=== PATIENT | female | born 1965 | race Caucasian/White ===

== ENCOUNTER 2024-09-06 18:44 | Emergency (ER) | payer MEDICARE, OTHER, SELFPAY ==
[2024-09-06 18:48] VITALS: BP 163/79; PULSE 70; TEMP 37; O2SAT 95; BMI 25.7
--- NOTE | 2024-09-06 19:04 | ED.GENADULT ---
HPI - General Adult General Chief complaint: Headache/Migraine Stated complaint: migraine Time Seen by Provider: 09/06/24 18:48 History of Present Illness HPI narrative: Patient is a 59-year-old woman with chronic headaches. Her bxpq-npz-[id number] remedies have not been working she has had refractory headache for the last 24 hours. Patient has been seen in the emergency room new her home of [facility] and is received IV saline Zofran Toradol and Benadryl. This has worked well. There has been no unusual features of this headache. She has her usual photophobia. No stiff neck no palpitations no other neurologic symptoms. Patient previously was in her usual state of health. Related Data Allergies Allergy/AdvReac Type Severity Reaction Status Date / Time acetaminophen (From Vicodin) Allergy Mild Verified 09/06/24 18:55 cyclobenzaprine (From Allergy Mild Verified 09/06/24 18:55 Flexeril) hydrocodone (From Vicodin) Allergy Mild Verified 09/06/24 18:55 Review of Systems Status of ROS: Reports: 10 or more systems reviewed and unremarkable except as noted in History and below Exam Narrative: Exam Narrative: EXAM GENERAL: Patient appears comfortable and well. EYES: No scleral icterus. ENT: Tympanic membranes and oropharynx normal. THYROID: no thyroid nodules or thyromegaly. LYMPH: No supraclavicular or cervical lymphadenopathy. SKIN: Visible skin seen during exam normal or with benign process only. EXT: No dependent lower extremity pedal edema. HEART: Regular rate and rhythm with no murmurs, rubs, or gallops. LUNGS: Clear to auscultation bilaterally with no crackles or wheezes. ABD: Soft, non tender, non distended. PSYCH: Good eye contact, speech is not pressured. Const: Vital Signs, click to edit/add: Vital Signs - 24 hr 09/06/24 18:48 Temperature 98.6 F Pulse Rate [Pulse Oximeter] 70 Blood Pressure [Ri ght Upper Arm] 163/79 H Pulse Oximetry 95 Oxygen Delivery Me thod Room Air Course Course ED Course: Patient seen and examined. Above mentioned cocktail of Benadryl normal saline Toradol and Zofran given. Patient will be observed likely discharged home to follow up with her primary physician to continue her outpatient medications. Vital Signs Vital signs: Initial Vital Signs Temperature 98.6 F 09/06/24 18:48 Temperature Source Temporal Artery Scan 09/06/24 18:48 Pulse Rate 70 09/06/24 18:48 Blood Pressure 163/79 H 09/06/24 18:48 Blood Pressure Mean 107 H 09/06/24 18:48 Blood Pressure Position Sitting 09/06/24 18:48 Pulse Oximetry 95 09/06/24 18:48 Oxygen Delivery Method Room Air 09/06/24 18:48 Vital Signs Temperature 98.6 F 09/06/24 18:48 Pulse Rate 70 09/06/24 18:48 Blood Pressure 163/79 H 09/06/24 18:48 Pulse Oximetry 95 09/06/24 18:48 Oxygen Delivery Method Room Air 09/06/24 18:48 Temperature 98.6 F 09/06/24 18:48 Pulse Rate 70 09/06/24 18:48 Blood Pressure 163/79 H 09/06/24 18:48 Pulse Oximetry 95 09/06/24 18:48 Oxygen Delivery Method Room Air 09/06/24 18:48 Medical Decision Making MDM Narrative Medical decision making narrative: As above. Discharge Plan Discharge Clinical Impression: Headache Patient Disposition: Home, Self-Care Condition: Stable Instructions: Acute Headache (ED) Additional Instructions: Continue current medications Follow-up with your doctor as needed. Activity Level: No Restrictions Discharge Diet: Regular Stand Alone Forms: MyHealth Info Instructions
[2024-09-06] MEDS: ONDANSETRON 2 MG/ML inj 4 MG IVP (19:20)
[2024-09-06] MEDS: diphenhydrAMINE 50 MG/ML inj IVP (19:22)
--- OUTSIDE RECORDS SUMMARY | 2024-09-06 19:22 | XMS_ITS | Encounter Summary ---
Author Organization [facility] Address [address] [place] [address] [address] [place] [address] Care Team Providers Care Video Game Script Writer Name Role Phone Jacinda Hyman MD Primary Care Provider [phone] Jacinda Hyman MD Unavailable [phone] Reason for Visit * Reason Comments Refill Request Encounter Details Date Type Department Care Team (Late st Contact Info) Description 07/26/2024 Refill [facility] [address] [place] [address] Jacinda Hyman MD [address] [place] [address] Refill Request Social History Tobacco Use Types Packs/Day Years Used Date Smoking Tobacco: Never Smokeless Tobacco: Never Alcohol Use Standard Drinks/Week Comments Yes 0 (1 standard drink = 0.6 oz pur e alcohol) socially less than weekly PHQ-2 Answer Date Recorded PHQ-9 Total (Adult) 12 11/27/2022 Exercise Vital Sign Answer Date Recorde d Days of Exercise per Week 4 days 2018 Minutes of Exercise per Session 30 min 06/24/2019 Sexually Active Control Partners Comments Yes Surgical Comments No Sex and Gender Information Value Date Recorded Sex Assigned at Female 11/19/2018 8:15 PM CDT Legal Sex Female 4:38 AM CDT Gender Identity Female 11/19/2018 8:15 PM CDT Sexual Orientation Choose not to disclose 2018 8:15 PM CDT documented as of this encounter Functional Status * Is the person deaf or does he/she have serious difficulty hearing? Answer Date of Assessment Author No 09/08/2015 3:19 PM TAPE KELLER OPERATOR Blas Hummel RN * Is this person blind or does he/she have difficulty seeing even when wearing glasses? Answer Date of Assessment Author No 01/21/2018 8:32 AM CDT Floresita Swartz RN * Do you have difficulty with walking, balance, climbing stairs, or had a fall in the last 3 months? Answer Date of Assessment Author No 08/24/2016 2:56 PM TAPE KELLER OPERATOR Cody Cueva RN * Does the patient have difficulty dressing or bathing? Answer Date of Assessment Author No 04/21/2015 3:23 PM CDT Sylvia Kruger RN * Because of a physical, mental, or emotional condition; does this person have difficulty doing errands alone such as visiting a doctor's office or shopping? Answer Date of Assessment Author No 04/21/2015 3:23 PM CDT Sylvia Kruger RN documented as of this encounter Mental Status * Because of a physical, mental, or emotional condition; does this person have serious difficulty concentrating, remembering, or making decisions? Answer Entry Date Author No 04/21/2015 3:23 PM Sylvia Brown RN documented in this encounter Nursing Notes * Sallie Holliday RN - 07/28/2024 4:14 PM CST Prescription refused. Per telephone encounter on 06/24/24 patient requested to be taken off of recall list as she was being seen at [place]. KELLER OPERATOR documented in this encounter Plan of Treatment Not on file documented as of this encounter Visit Diagnoses Diagnosis Gastro-esophageal reflux disease without esophagitis Esophageal reflux documented in this encounter Care Teams Video Game Script Writer Relationship Specialty Start Date End Date Jacinda Hyman MD [address] [place] [address] PCP - General 08/13/09 Jacinda Hyman MD [address] [place] [address] [address] PCP - Attributed Provider 11/21/21 documented as of this encounter
--- OUTSIDE RECORDS SUMMARY | 2024-09-06 19:23 | XMS_ITS | Clinical Summary ---
Author Organization [facility] Address [address] [place] [address] Care Team Providers Care Claims Customer Service Representative Name Role Phone Jacinda Hyman MD Primary Care Provider [phone] Jacinda Hyman MD Unavailable [phone] Allergies Active Allergy Reactions Criticality Noted Date Comments Dust Mite Extract Other (Specify in Comments) 08/13/2009 Nasal congestion, watery eyes Gabapentin Enacarbil Confusion 10/26/2014 Morphine Nausea and Vomiting 09/25/2014 Pet Dander Other (Specify in Comments) 08/13/2009 Nasal congestion, watery eyes Fluoxetine Other (Specify in Comments) 07/05/2015 Nightmares Hydrocodone-Acetaminop hen Other (Specify in Comments) 08/13/2009 hallucinations Medications Polyethylene Glycol 3350 (MIRALAX PO) Take 1 capful by mouth 2 times per day as needed. - for constipation. Active vitamin C, ascorbic acid, 500 MG tablet Take 500 mg by mouth 2 times per day. 0 Active Calcium Carbonate-Vitami n D (CALCIUM 600 + D PO) Take 2 tablets by mouth 1 time per day. Active melatonin 3 mg tablet Take 1.5 mg by mouth every night at bedtime Active fluticasone (FLONASE) 50 mcg/spray nasal sprayIndications :Nausea SPRAY 2 SPRAYS INTO EACH NOSTRIL 1 TIME PER DAY. 16 g 3 1 Active buPROPion (WELLBUTRIN XL) 300 mg tablet (24 hr)Indications:D epression with anxiety Take 1 tablet (300 mg) by mouth 1 time per day 90 tablet 3 2 Active ondansetron (ZOFRAN) 4 mg tabletIndication s:Nausea Take 1 tablet (4 mg) by mouth every 6 hours as needed for nausea (due to migraine) 20 tablet 1 2 Active topiramate (TOPAMAX) 100 mg tabletIndication s:Nonintractable headache, unspecified chronicity pattern, unspecified headache type Take 1.5 tablets (150 mg) by mouth 1 time per day 45 tablet 3 3 Active citalopram (CELEXA) 40 mg tablet 1 time per day 2 Active sumatriptan (IMITREX) 100 mg tabletIndication s:Migraine without status migrainosus, not intractable, unspecified migraine type Take 1 tablet (100 mg) by mouth if needed for migraine For adults: may repeat x1 dose after 2 hours if needed; MAX 2 doses/24 hours 9 tablet 12 3 Active estradiol (ESTRACE) 1 mg tabletIndication s:Hormone replacement therapy (HRT) Take 1 tablet (1 mg) by mouth 1 time per day 30 tablet 3 Active rizatriptan (MAXALT-TEXTILE ENGRAVER) 10 mg dispersible tabletIndication s:Migraine without status migrainosus, not intractable, unspecified migraine type Take 1 tablet (10 mg) by mouth every 2 hours as needed for migraine Dissolve in mouth at onset of headache. For adults: may repeat x 1 dose after 2 hours if needed; MAX 2 doses in 24 hours. For pediatrics: MAX 1 dose in 24 hours (dose is based on weight in kg). 18 tablet 3 Active esomeprazole (NEXIUM) 40 mg capsuleIndicatio ns:Gastro-esopha geal reflux disease without esophagitis TAKE 1 Capsule BY MOUTH EVERY MORNING 14 capsule 4 Active Active Problems Problem Noted Date Diagnosed Date Moderate episode of recurrent major depressive d isorder 11/15/2022 History of malignant melanoma 11/29/2018 Migraine without status migrainosus, not intract able 10/13/2017 Ovarian cancer 11/30/2016 Depression with anxiety 02/09/2016 Essential hypertension 02/09/2016 Malignant melanoma of upper arm 06/08/2010 Malignant melanoma 02/10/2010 GERD (gastroesophageal reflux disease) 0 Constipation 08/26/2009 Thoracic compression fracture Resolved Problems Problem Noted Date Diagnosed Date Resolved Date Headache 09/18/2016 11/30/2016 Overview (09/18/2016): Migraine by history Dyspareunia in female 04/20/20162016 Atrophic vaginitis 04/20/2016 7 Vaginismus 04/20/2016 08/24/2016 Depression 08/15/2012 02/09/2016 Dyspareunia 01/11/2012 11/30/2016 Slow urinary stream 01/11/2012 12/01/19 17 Pyelonephritis 08/26/2009 11/30/2016 Hypertension 08/13/2009 02/09/2016 Encounters Date Type Department Care Team Description 07/26/2024 Refill [facility] [address] [place] [address] Jacinda Hyman MD Refill Request 07/17/2024 Refill [facility] [address] [place] [address] Jacinda Hyman MD Refill Request 07/10/2024 Refill [facility] [address] [place] [address] [address] Jacinda Hyman MD Refill Request 06/24/2024 Telephone [facility] [address] [place] [place] [address] Blossom Santana, SUPERVISOR [employer] 06/24/2024 Refill [facility] [address] [place] [address] [address] Jacinda Hyman MD Refill Request 06/12/2024 Refill [facility] [address] [place] [address] Jacinda Hyman MD Refill Request from Last 3 Months Immunizations Immunization Administration Dates Next Due FLU VACCINE TRIVALENT MULTIDOSE(Fluvirin,Afluria) 05/01/2012 FLU VACCINE INTRADERMAL 18-64YR 05/15/2014,05/17 FLU VACCINE MULTIDOSE 0.5mL(6MO+Fluzone/Flulaval,Afluria) 05/15/2014 FLU VACCINE SINGLE DOSE 0.5mL(6MO+Fluzone/Flulaval/Fluarix,3Y R+Afluria) 05/14/2020,06/24/2019,05/01/2018,2016,07/25/2016 Influenza Vaccine 05/06/2011 Influenza Vaccine,unspecified 05/16/2012, 006,05/28/2001 TDAP 04/30/2016 Tuberculin Skin Test PPD Intradermal 10/23/2017, 10/08/2017 pneumovax 08/18/2005 Family History Medical History Relation Comments Alcohol/Drug Father alcohol abuse Allergies Father environmental Arthritis Father Asthma Father Chronic Obstructive Pulmonary Disease Father Eye Disorder Father Heart Father heart attack-dwayne nts placed Hypertension Father Migraines Father Stroke Father Heart Maternal Grandfather Genitourinary () Mother Peripheral Vascular Disease Mother Heart Paternal Grandfather Dementia Paternal Grandmother Diabetes Paternal Uncle Depression Sister 1 Relation Status Comments Brother Alive Daughter Alive Father Alive Maternal Grandfather Maternal Grandmother Mother Alive Paternal Grandfather Paternal Grandmother Paternal Uncle Sister 1 Alive Sister 2 Alive Son 1 Alive Son 2 Alive Social History Tobacco Use Types Packs/Day Years [...] not to disclose 2018 8:15 PM CDT Last Filed Vital Signs Vital Sign Reading Time Taken Comments Blood Pressure 108/72 12/18/2022 1:47 PM CDT Pulse 104 12/18/2022 1:47 PM CDT Temperature 36.7 C (98.1 F) 12/18/2022 1:47 PM CDT Respiratory Rate 16 12/18/2022 1:47 PM CDT Oxygen Saturation 97% 12/18/2022 1:47 PM CDT Inhaled Oxygen Concentration - - Weight 65.3 kg (144 lb) 12/18/2022 1:47 PM CDT Height 160 cm (5' 3) 01/21/2018 8:34 AM CDT Body Mass Index 25.51 01/21/2018 8:34 AM CDT Plan of Treatment Health Maintenance Due Date Last Done Comments Microalbumin 1965 Covid-19 Vaccine (#1) 01/04/1969 Zoster Vaccine (1 of 2) 01/04/1983 Pneumococcal Vaccine 50yr + (2 of 2 - PCV) 08/18/2006 08/18/2005 Mammogram 07/10/2023 07/10/2022, 02/0 08/2020, 07/21/2019, Additional history exists Influenza Vaccine (#1) 2024 , 06/24/2019, 05/01/2018, Additional history exists Diabetes Screening 11/27/2025 11/27/2022, 0 10/02/2022, 11/03/2021, Additional history exists TDAP/TD VACCINE (2 - Td or Tdap) 04/30/2026 04/30/2016 Lipid Screening 11/28/2027 11/27/2022, 05/31, 06/18/2018, Additional history exists Colorectal Cancer Screening 01/22/2028 01/21/2018, 0 10/05/2009 RSV Vaccine, Adult (1 - 1-dose 75+ series) 01/04/2039 HIV One Time Screening Ages 15-65 Completed 07/02/2017 Hepatitis C Screening Completed 07/02/2017 Hepatitis B Vaccine Aged Out No longe r eligible based on patient's age to complete this topic Medical Devices Implanted Type Area Bleacher Operator Device Identifier Shelf Expiration Date Model / Serial / Lot Tvt Sling Lynx N 850-300 Ea(Aka Vag Tvt System [id number]) - [id number] Implanted:Qty : 1 on 07/28/2010 at [facility] General Implant SUPR[employer]UB[employer] 12/28/2012 850-300 / / [id number] Procedures Procedure Name Priority Date/Time Associated Diagnosis Comments LIPID PANEL Routine 11/27/2022 8:55 AM CDT Essential hypertension BASIC METABOLIC PANEL Routine 11/27/2022 8:55 AM CDT Essential hypertension MAMMOGRAM DIGITAL DIAGNOSTIC BIANCA Routine 07/10/2022 2:47 PM PAPER CONTROL CLERK Encounter for screening mammogram for malignant neoplasm of breast HIV SCREEN REFLEX TO CONFIRMATION Routine 07/02/2017 9:43 AM PAPER CONTROL CLERK Screening for HIV (human immunodeficiency virus) HEPATITIS C ANTIBODY Routine 07/02/2017 9:43 AM PAPER CONTROL CLERK Encounter for hepatitis C screening test for low risk patient from Last 3 Months or Most Recently Relevant to Health Maintenance Results * (ABNORMAL) LIPID PANEL (11/27/2022 8:55 AM CDT) Cholesterol 208(H) <200 mg/dL 11/27/2022 9:27 AM CDT [facility] Triglyceride 131 <150 mg/dL 11/27/2022 9:27 AM CDT [facility] HDL 62 >=40 mg/dL 11/27/2022 9:27 AM CDT [facility] LDL 120(H) <=100 mg/dL 11/27/2022 9:27 AM CDT [facility] Blood BLOOD SPECIMEN / Unknown 11/27/2022 8:55 AM CDT 11/27/2022 8:59 AM CDT us Jacinda Hyman MD LAB BLOOD Final Result [facility] [address] [place] [address] * BASIC METABOLIC PANEL (11/27/2022 8:55 AM CDT) Glucose 93 70 - 99 mg/dL 11/27/2022 9:27 AM CDT [facility] BUN 17 6 - 22 mg/dL 11/27/2022 9:27 AM CDT [facility] Creatinine 0.99 0.55 - 1.02 mg/dL 11/27/2022 9:27 AM T [facility] BUN/Creatinine Ratio 17.2 10.0 - 25.0 11/27/2022 9:27 AM T [facility] Sodium 138 136 - 145 meq/L 11/27/2022 9:27 AM T [facility] Potassium 5.0 3.5 - 5.1 meq/L 11/27/2022 9:27 AM [facility] Chloride 102 98 - 109 meq/L 11/27/2022 9:27 AM T [facility] CO2 26 20 - 29 meq/L 11/27/2022 9:27 AM T [facility] Anion Gap with K 15 6 - 20 meq/L 11/27/2022 9:27 AM [facility] Calcium 9.7 8.5 - 10.5 mg/dL 11/27/2022 9:27 AM [facility] Age 57 Years 11/27/2022 9:27 AM [facility] eGFRcr() 66 >=60 mL/min/1.7 3m2 11/27/2022 9:27 AM [facility] Blood BLOOD SPECIMEN / Unknown 11/27/2022 8:55 AM CDT 11/27/2022 8:59 AM CDT us Jacinda Hyman MD LAB BLOOD Final Result Performing Organization Address City/State/[facility] de Phone Number [facility] [address] [place] [address] * (ABNORMAL) MAMMOGRAM DIGITAL DIAGNOSTIC BIANCA (07/10/2022 2:47 PM PAPER CONTROL CLERK) Anatomical Region Laterality Modality Breast Bilateral Mammography 07/10/2022 2:48 PM PAPER CONTROL CLERK Narrative 07/10/2022 2:50 PM PAPER CONTROL CLERK Patient Name: BELLA ANDERSON Date of : 1965 Procedure: MAMMOGRAM DIGITAL DIAGNOSTIC BIANCA Date of Service: 07/10/2022 EXAM: MAMMOGRAM DIGITAL DIAGNOSTIC BIANCA INDICATION: ICD-10 Z12.31 Encounter for screening mammogram for malignant neoplasm of breast screening, right breast lump lateral . COMPARISON(S): 08/31/2020 and 07/21/2019 TECHNIQUE: Computer aided detection used. DENSITY: There are scattered areas of fibroglandular density. MAMMOGRAM FINDINGS: I do not see any concerning findings on either side. The lump marker overlies the upper outer quadrant of the right breast. ASSESSMENT: BI-RADS Category 0 incomplete RECOMMENDATION: Diagnostic right breast ultrasound. Please see the ultrasound report for the final follow-up recommendation. A letter will be sent to the patient indicating her mammography results in lay terminology. Finalized by: Chago Juarez MD on 07/10/2022 2:50 PM PAPER CONTROL CLERK Patient/Procedure Information: [facility] MRN/PRICILLA: [id number] Order Number: [id number] Accession Number: [id number] Ordering Provider: JACINDA HYMAN Authorizing Provider: JACINDA HYMAN us Jacinda Hyman MD MAMMOGRAPHY Final Result * HEPATITIS C ANTIBODY (07/02/2017 9:43 AM PAPER CONTROL CLERK) Hepatitis C Antibody Interp Nonreactive Nonreactive 07/02/2017 10:46 PM [facility] Blood BLOOD SPECIMEN / Unknown 07/02/2017 9:43 AM PAPER CONTROL CLERK 07/02/2017 10:21 AM PAPER CONTROL CLERK [facility] - 07/02/2017 10:46 PM PAPER CONTROL CLERK Antibodies to HCV not detected; does not exclude the possibility of exposure to HCV. us Jacinda Hyman MD LAB BLOOD Final Result [facility] [address], [place] [address] * HIV-1/2 ANTIBODY EIA (07/02/2017 9:43 AM PAPER CONTROL CLERK) HIV 1 Ag HIV 1/2 Ab Nonreactive Nonreactive 07/02/2017 10:49 PM PAPER CONTROL CLERK LABORATORY Blood BLOOD SPECIMEN / Unknown 07/02/2017 9:43 AM PAPER CONTROL CLERK 07/02/2017 10:21 AM PAPER CONTROL CLERK us Jacinda Hyman MD LAB BLOOD Final Result [facility] [address] [facility] [[email or web address] [place] [address] from Last 3 Months or Most Recently Relevant to Health Maintenance Advance Directives For more information, please contact: [phone] * Full Code (Latest Code Status on File) Date Activated Date Inactivated Comments 01/21/2018 8:34 AM 01/21/2018 6:14 PM * Full Code Date Activated Date Inactivated Comments 03/11/2012 10:16 AM 03/11/2012 10:02 PM Care Teams Claims Customer Service Representative Relationship Specialty Start Date End Date Jacinda Hyman MD [address] [place] [address] PCP - General 08/13/09 Jacinda Hyman MD [address] [place] [address] PCP - Attributed Provider 11/21/21
[2024-09-06] MEDS: KETOROLAC 30 MG/ML inj IVP (19:26)
[2024-09-06] MEDS: 0.9 % SODIUM CHLORIDE 1000 ml 1,000 ML IV (19:30)
[2024-09-06 20:22] VITALS: BP 143/83; PULSE 76; RESP 16
== END 2024-09-06 20:23 | disposition home or self-care (01) ==
PROVIDERS: Emergency Provider Internal Medicine
DX: R51.9 Headache, unspecified (principal)
CPT/HCPCS: 96374; 96375; 99283; 99284; J1200; J1885; J2405; J7030